=== PATIENT | male | born 1970 | race Caucasian/White ===

== ENCOUNTER 2017-01-05 09:04 | Outpatient (CLI) | payer BC ==
[2017-01-05 16:33] LABS: ALT (SGPT) 34 U/L (0-55); AST (SGOT) 23 U/L (5-34); Albumin 4.5 g/dL (3.5-5.0); Alkaline Phosphatase 61 U/L (40-150); Anion Gap 13 mmol/L (10-20); BUN (Urea Nitrogen) 17 mg/dL (8.9-20.6); Bilirubin, Total 0.6 mg/dL (0.2-1.2); Calc. Creatinine Clearance 0 mL/min (70-130); Calcium 9.8 mg/dL (7.8-10.44); Carbon Dioxide 30 mmol/L (22-29); Cardiac Risk 4.8 (Less than 4.5); Chloride 100 mmol/L (98-107); Cholesterol 211 mg/dL (< 200 Desired); Estimated GFR-MDRD 75; Globulin 3.1 g/dL (2.4-3.5); Glucose 99 mg/dL (70-105); HDL Cholesterol 44 mg/dL (>60 Neg Risk); LDL Cholesterol, Calculated 139 mg/dL; Potassium 5.3 mmol/L (3.5-5.1); Protein, Total 7.6 g/dL (6.0-8.3); Sodium 138 mmol/L (136-145); Triglycerides 139 mg/dL (Less than 150)
[2017-01-05 17:54] LABS: #Basophils 0.1 thou/uL (0.0-0.2); #Eosinphils 0.1 thou/uL (0.0-0.7); #Lymphocytes 3.1 thou/uL (1.20-3.40); #Monocytes 0.9 thou/uL (0.11-0.59); #Neutrophils 5.6 thou/uL (1.40-6.50); %Basophils 1.4 % (0.0-1.0); %Eosinophils 1.1 % (0.0-10.0); %Lymphocytes 31.9 % (21.0-51.0); %Monocytes 8.6 % (0.0-10.0); Hemoglobin 17.1 g/dL (14.0-18.0); Mean Corpuscular HGB CONC 33.6 g/dL (32.0-36.0); Mean Corpuscular Hemoglobin 29.2 pg (27.0-31.0); Mean Platelet Volume 5.9 fL (7.4-10.4); Platelet Count 311 thou/uL (130-400); RBC Distribution Width 11.9 % (11.5-14.5); Red Blood Cell (RBC) Count 5.85 mill/uL (4.70-6.10); White Blood Cell (WBC) Count 9.8 thou/uL (4.8-10.8)
== END 2017-01-05 09:05 ==
LOC: LABLEX 09:04
PROVIDERS: ATTEND Family Medicine
DX: E78.5 Hyperlipidemia, unspecified (principal); I10 Essential (primary) hypertension
CPT/HCPCS: 80050; 80061

== ENCOUNTER 2022-10-10 15:15 | Emergency (ER) | payer BC ==
[2022-10-10] MEDS ORDERED: Doxycycline 100 MG CAP ONE (15:43)
[2022-10-10] MEDS ORDERED: methylPREDNISolone Sod Succ/PF 125 MG/2 ML VIAL ONE (15:43)
== END 2022-10-10 16:07 | disposition home or self-care (01) ==
LOC: BURERS 15:15
DX: J06.9 Acute upper respiratory infection, unspecified (principal); I10 Essential (primary) hypertension; E78.5 Hyperlipidemia, unspecified; Z87.891 Personal history of nicotine dependence; Z79.899 Other long term (current) drug therapy
CPT/HCPCS: 94640; 96372; J2930; J7620

== ENCOUNTER 2023-01-22 19:29 | Emergency (ER) | payer BC, OTHER ==
[~2023-01-22 19:29] MED LIST: Iopamidol 370 76% 100 ML VIAL ONE
[2023-01-22] MEDS ORDERED: Aspirin Chewable 81 MG TAB ONE (19:39)
[2023-01-22] MEDS ORDERED: Nitroglycerin 0.4 MG TAB 1 EACH ONE ×3 (19:39→20:22)
[2023-01-22 19:52] LABS: #Lymphocytes 2.1 thou/uL (1.20-3.40); #Monocytes 0.8 thou/uL (0.11-0.59); #Neutrophils 4.1 thou/uL (1.40-6.50); %Basophils 0.7 % (0.0-1.0); %Eosinophils 0.7 % (0.0-10.0); %Lymphocytes 29.3 % (21.0-51.0); %Monocytes 10.9 % (0.0-10.0); %Neutrophils 58.5 % (42.0-75.0); Hemoglobin 14.1 g/dL (14.0-18.0); Mean Corpuscular HGB CONC 34.4 g/dL (32.0-36.0); Mean Corpuscular Hemoglobin 30.3 pg (27.0-31.0); Mean Corpuscular Volume 88.3 fl (78.0-98.0); Mean Platelet Volume 5.2 fL (7.4-10.4); Platelet Count 170 10x3/uL (130-400); RBC Distribution Width 12.2 % (11.5-14.5); Red Blood Cell (RBC) Count 4.67 mill/uL (4.70-6.10)
[2023-01-22 20:11] LABS: ALT (SGPT) 31 U/L (8-55); AST (SGOT) 32 U/L (5-34); Albumin 4.6 g/dL (3.5-5.0); Alkaline Phosphatase 82 U/L (40-110); Anion Gap 14 mmol/L (10-20); BUN (Urea Nitrogen) 10 mg/dL (8.4-25.7); Bilirubin, Total 0.5 mg/dL (0.2-1.2); Calc. Creatinine Clearance 0 mL/min (70-130); Calcium 9.4 mg/dL (7.8-10.44); Carbon Dioxide 24 mmol/L (22-29); Chloride 104 mmol/L (98-107); Estimated GFR 87; Globulin 2.7 g/dL (2.4-3.5); Glucose 135 mg/dL (70-105); Potassium 3.3 mmol/L (3.5-5.1); Protein, Total 7.3 g/dL (6.0-8.3); Sodium 139 mmol/L (136-145)
[2023-01-22] MEDS ORDERED: Morphine 4 MG/ML VIAL ONE ×3 (20:33→22:53)
== END 2023-01-22 23:00 | disposition home or self-care (01) ==
LOC: BURERS 19:29
DX: R07.9 Chest pain, unspecified (principal); E78.5 Hyperlipidemia, unspecified; I10 Essential (primary) hypertension; Z87.891 Personal history of nicotine dependence; Z79.899 Other long term (current) drug therapy
CPT/HCPCS: 71045; 71275; 80053; 83880; 84484; 85025; 93005; 96374; 96376; J2270; Q9967